=== PATIENT | female | born 1960 ===

== ENCOUNTER 2017-02-03 12:12 | Emergency (ER) | payer MEDICAID ==
[2017-02-03 12:33] VITALS: BP 113/73; PULSE 77; RESP 16; TEMP 98.7; O2SAT 98
[2017-02-03] MEDS ORDERED: Albuterol-Ipratrop 3 mg / 0.5 (3 ml) UD INH STA (12:49)
[2017-02-03] MEDS ORDERED: Albuterol-Ipratrop 3 mg / 0.5 (3 ml) UD ONE (13:03)
--- NOTE | 2017-02-03 13:04 | ED PDOC ---
HPI: CCC, URI, Sore Throat Time Seen by Provider: 02/03/17 12:45 Chief Complaint (Nursing): Fever Chief Complaint (Provider): Chest pain History Per: Patient History/Exam Limitations: no limitations Onset/Duration Of Symptoms: Days Current Symptoms Are (Timing): Still Present Location Of Pain: Throat, Diffuse Myalgias Sick Contacts (Context): None Associated Symptoms: Cough Ear Symptoms: Bilateral: None Severity: Mild Additional Complaint(s): Patient is a 56 year old female who presents to ED for multiple complaints. Concerned mostly of throat pain and possible need for antibiotis. Notes 1 week of neck and left arm pain worse with movement. States she also developed a chest tightness that is only cleared by coughing. Now with sore throat and ear pain for 2 days. Denies vomiting, palpations, SOB or rash. Past Medical History Reviewed: Historical Data, Nursing Documentation, Vital Signs Vital Signs: Last Vital Signs Temp 98.7 F 02/03/17 12:30 Pulse 77 02/03/17 12:30 Resp 16 02/03/17 12:30 BP 113/73 02/03/17 12:30 Pulse Ox 98 02/03/17 13:35 - Medical History PMH: Migraine - Surgical History Surgical History: No Surg Hx - Family History Family History: States: No Known Family Hx - Living Arrangements Living Arrangements: With Family - Home Medications Home Medications: Ambulatory Orders Medication Instructions Recorded Albuterol HFA [Ventolin HFA 90 2 puff IH [id number] PRN #1 inhaler 02/03/17 mcg/actuation (8 g)] Cetirizine HCl [Zyrtec] 10 mg PO DAILY #15 capsule 02/03/17 Fluticasone Propionate [Flonase] 2 spr IN DAILY #1 bottle 02/03/17 Ibuprofen [Motrin] 600 mg PO Q8 PRN #21 tab 02/03/17 - Allergies Allergies/Adverse Reactions: Allergies Allergy/AdvReac Type Severity Reaction Status Date / Time No Known Allergies Allergy Verified 02/03/17 12:30 Review of Systems ROS Statement: Except As Marked, All Systems Reviewed And Found Negative Constitutional: Negative for: Fever ENT: Positive for: Ear Pain, Throat Pain Cardiovascular: Positive for: Chest Pain. Negative for: Palpitations, Light Headedness Respiratory: Positive for: Cough Gastrointestinal: Negative for: Nausea, Vomiting, Abdominal Pain Skin: Negative for: Rash Neurological: Negative for: Weakness, Numbness Physical Exam - Reviewed Nursing Documentation Reviewed: Yes Vital Signs Reviewed: Yes - Physical Exam Appears: Positive for: Non-toxic, No Acute Distress Skin: Positive for: Normal Color, Warm. Negative for: Rash Eye Exam: Positive for: Normal appearance ENT: Positive for: TM Is/Are (clear bilaterally ), Other (Questionable pharyngeal petichae ). Negative for: Pharyngeal Erythema, Tonsillar Exudate Neck: Positive for: Normal (Left lateral neck tenderness ), Painless ROM Cardiovascular/Chest: Positive for: Regular Rate, Rhythm. Negative for: Chest Non Tender (Reproducible chest wall tenderness ), Murmur Respiratory: Positive for: Normal Breath Sounds. Negative for: Respiratory Distress Back: Positive for: Normal Inspection Extremity: Positive for: Normal ROM. Negative for: Pedal Edema Neurologic/Psych: Positive for: Alert, Oriented - ECG O2 Sat by Pulse Oximetry: 98 (RA) Pulse Ox Interpretation: Normal Medical Decision Making Medical Decision Making: Time: 1245 Initial Impression: R/O strep vs viral illness Initial Plan: -- EKG -- Duoneb x1 -- Rapid strep Scribe Attestation: Documented by Zonia Padilla, acting as a scribe for Jennifer Sandoval PA-C. Provider Scribe Attestation: All medical record entries made by the Scribe were at my direction and personally dictated by me. I have reviewed the chart and agree that the record accurately reflects my personal performance of the history, physical exam, medical decision making, and the department course for this patient. I have also personally directed, reviewed, and agree with the discharge instructions and disposition. Disposition - Clinical Impression Clinical Impression: Seasonal allergies - Patient ED Disposition Is Patient to be Admitted: No - Disposition Referrals: [facility] [Outside] Disposition: Routine/Home Disposition Time: 13:34 Condition: FAIR Prescriptions: Albuterol HFA [Ventolin HFA 90 mcg/actuation (8 g)] 2 puff IH [id number] PRN #1 inhaler PRN Reason: Cough Fluticasone Propionate [Flonase] 2 spr IN DAILY #1 bottle Ibuprofen [Motrin] 600 mg PO Q8 PRN #21 tab PRN Reason: Pain, Moderate (4-7) Cetirizine HCl [Zyrtec] 10 mg PO DAILY #15 capsule Instructions: Reactive Airways Disease (ED), Allergic Rhinitis (ED) Forms: [facility] ED School/Work Excuse Print Language: MOZAMBICAN
--- NOTE | 2017-02-03 20:06 | CARD ---
APPROVED REPORT EKG Measurement Heart [id number] <Conclusion> Normal sinus rhythm Normal ECG
== END 2017-02-03 14:12 | disposition home or self-care (01) ==
LOC: H.ER 12:12
DX: J30.2 Other seasonal allergic rhinitis (principal); R07.89 Other chest pain; R07.0 Pain in throat

== ENCOUNTER 2018-02-04 08:38 | Emergency (ER) | payer MEDICAID ==
[2018-02-04 08:40] VITALS: BMI 23.1
[2018-02-04] MEDS ORDERED: Sodium Chloride 0.9% 1,000 ML IV STA (09:10)
[2018-02-04] MEDS ORDERED: Dexamethasone 8 MG in Dextrose 5% In Water 50 ML IV ONE (09:11)
[2018-02-04 09:42] LABS: BASO % 0.5 % (0.0-2.0); EOS # 0.2 K/uL (0.0-0.7); EOS % 2.2 % (0.0-4.0); HEMOGLOBIN 12.8 g/dL (12.0-16.0); LYMPH # 1.5 K/uL (1.0-4.3); LYMPH % 16.1 % (20.0-40.0); MEAN CELL VOLUME 83.3 fl (81.0-99.0); MEAN CORPUSCULAR HEMOGLOBIN 27.3 pg (27.0-31.0); MEAN CORPUSCULAR HGB CONC 32.7 g/dL (33.0-37.0); MEAN PLATELET VOLUME 8.4 fl (7.2-11.7); MONO # 0.5 K/uL (0.0-0.8); MONO % 5.1 % (0.0-10.0); NEUT # 6.9 K/uL (1.8-7.0); NEUT % 76.1 % (50.0-75.0); RBC 4.71 Mil/uL (3.80-5.20); RED CELL DISTRIBUTION WIDTH 14.2 % (11.5-14.5); WHITE BLOOD COUNT 9.1 K/uL (4.8-10.8)
[2018-02-04] MEDS ORDERED: Dexamethasone 4 mg/1 ml IVP ONE (09:45)
--- NOTE | 2018-02-04 09:50 | ED PDOC ---
HPI: General Adult Time Seen by Provider: 02/04/18 08:48 Chief Complaint (Nursing): ENT Problem Chief Complaint (Provider): ENT Problem History Per: Patient History/Exam Limitations: no limitations Onset/Duration Of Symptoms: Days (x last evening) Current Symptoms Are (Timing): Still Present Additional Complaint(s): Ms. Mayra vidal a 57 year old female who presents to the ED complaining of left-sided throat pain and inability to swallow since last evening. Describes pain as sharp and radiates to left ear. Denies fever, headache or sick contacts. PMD: Marilee Argueta Past Medical History Reviewed: Historical Data, Nursing Documentation, Vital Signs Vital Signs: Last Vital Signs Temp 98 F 02/04/18 08:40 Pulse 78 02/04/18 08:40 Resp 17 02/04/18 08:40 BP 102/66 02/04/18 08:40 Pulse Ox 100 02/04/18 13:18 - Medical History PMH: No Chronic Diseases - Surgical History Surgical History: No Surg Hx - Family History Family History: States: Unknown Family Hx - Social History Current smoker - smoking cessation education provided: No - Home Medications Home Medications: Ambulatory Orders Medication Instructions Recorded Albuterol HFA [Ventolin HFA 90 2 puff IH [id number] PRN #1 inhaler 02/03/17 mcg/actuation (8 g)] Cetirizine HCl [Zyrtec] 10 mg PO DAILY #15 capsule 02/03/17 Fluticasone Propionate [Flonase] 2 spr IN DAILY #1 bottle 02/03/17 Ibuprofen [Motrin] 600 mg PO Q8 PRN #21 tab 02/03/17 Amoxicillin/Clavulanate [Augmentin 1 tab PO BID #14 tab 02/04/18 875 MG-125 MG] Naproxen [Naprosyn] 500 mg PO BID PRN #14 tablet 02/04/18 - Allergies Allergies/Adverse Reactions: Allergies Allergy/AdvReac Type Severity Reaction Status Date / Time No Known Allergies Allergy Verified 02/03/17 12:30 Review of Systems ROS Statement: Except As Marked, All Systems Reviewed And Found Negative Constitutional: Negative for: Fever ENT: Positive for: Throat Pain (left-sided), Other (Inability to swallow) Neurological: Negative for: Headache Physical Exam - Reviewed Nursing Documentation Reviewed: Yes Vital Signs Reviewed: Yes - Physical Exam Appears: Positive for: Non-toxic Head Exam: Positive for: ATRAUMATIC, NORMAL INSPECTION, NORMOCEPHALIC Skin: Positive for: Normal Color, Warm, Dry Eye Exam: Positive for: Normal appearance, EOMI, PERRL ENT: Positive for: Pharynx Is (Asymmetry. Left peritonsillar area is edemous, inflamed and erythematous with exudates at tonsil. ), TM Is/Are (unremarkable), Tonsillar Exudate, Other (Uvula is midline) Neck: Negative for: Normal ((+): Left anterior neck Lymphadenopathy) Cardiovascular/Chest: Positive for: Regular Rate, Rhythm Respiratory: Positive for: Normal Breath Sounds (Lungs clear), Respiratory Distress Gastrointestinal/Abdominal: Positive for: Normal Exam Extremity: Positive for: Normal ROM. Negative for: Deformity Neurologic/Psych: Positive for: Alert, Oriented (x 3) - Laboratory Results Result Diagrams: 02/04/18 09:30 02/04/18 09:30 - ECG O2 Sat by Pulse Oximetry: 100 (RA) Pulse Ox Interpretation: Normal Medical Decision Making Medical Decision Making: Work up for Biphasia, peritonsillar abscess Time: 09:10 Plan: - CT Neck Soft Tissue with Contrast - BMP - CBC - Decadron Inj - Morphne 2 mg IV ONCE - Sodium Chloride 0.9% 1,000 ml IV 1,000 ms/hr Time: 11:19 CT Neck Soft Tissue with Contrast FINDINGS: NASOPHARYNX: Unremarkable. SUPRAHYOID NECK: Unremarkable oropharynx. Parapharyngeal spaces are clear. There is asymmetric enlargement of the left palatine tonsil extending into the uvula. The lingual and adenoidal tonsils are unremarkable. There is no evidence of tonsillar/ peritonsillar abscess. Findings may reflect acute bacterial tonsillitis. Please correlate with direct visual inspection. Intrinsic muscles of the tongue are symmetric and normal in appearance. INFRAHYOID NECK: Unremarkable larynx, hypopharynx, and supraglottic space. Vocal cords intact. MASS: None. GLANDS: Parotid and submandibular glands unremarkable. Normal size thyroid gland, without nodule. LYMPH NODES: Shotty subcentimeter level 1 and 2 cervical nodes. No significant cervical lymphadenopathy. 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 No acute fracture. VASCULAR STRUCTURES: Unremarkable. OTHER FINDINGS: None. IMPRESSION: Left palatine tonsillar enlargement extending to the left side of the uvula without evidence of abscess. Possible bacterial tonsillitis. Correlate with direct visual inspection. Lingual and adenoidal tonsils are unremarkable. No significant cervical lymphadenopathy. No additional abnormality. Pt tolerating fluids in ED, vitals stable Received dose Zosyn, followup ENT Rx augmentin and naprosyn Scribe Attestation: Documented by John Garcia, acting as a scribe for Rajat Jean-Baptiste III, DO Provider Scribe Attestation: All medical record entries made by the Scribe were at my direction and personally dictated by me. I have reviewed the chart and agree that the record accurately reflects my personal performance of the history, physical exam, medical decision making, and the department course for this patient. I have also personally directed, reviewed, and agree with the discharge instructions and disposition. Disposition - Clinical Impression Clinical Impression: Tonsillitis - Patient ED Disposition Is Patient to be Admitted: No Counseled Patient/Family Regarding: Studies Performed, Diagnosis, Need For Followup, Rx Given - Disposition Referrals: Almas Barrow MD [Staff Provider] - Disposition: Routine/Home Disposition Time: 12:45 Condition: STABLE Additional Instructions: Return to ER for any new or change in symptoms. See ENT doctor for any worsening pain. Drink plenty of fluids. Use soft diet. Take antibiotic as directed. --------- Volver a er para cualquier nuevo o cambio en los sntomas. Consulte al mdico ENT para cualquier dolor que empeore. Myra muchos lquidos. Use dieta blanda. Notus antibiticos anna se indica. Prescriptions: Amoxicillin/Clavulanate [Augmentin 875 MG-125 MG] 1 tab PO BID #14 tab Naproxen [Naprosyn] 500 mg PO BID PRN #14 tablet PRN Reason: Pain, Moderate (4-7) Instructions: Sore Throat in Adults Forms: [facility] (Faroese) Print Language: TURKISH
[2018-02-04] MEDS ORDERED: Dexamethasone 4 mg/1 ml ONE (09:55)
[2018-02-04 09:57] LABS: BLOOD UREA NITROGEN 14 mg/dl (7-17); GFR AFRICAN-AMERICAN > 60; GFR NON-AFRICAN AMERICAN > 60
[2018-02-04] MEDS ORDERED: Iohexol 300 100 ML IJ ONE (10:26)
--- NOTE | 2018-02-04 11:20 | CT ---
PROCEDURE: CT NECK WITH CONTRAST HISTORY: left throat pain/swelling COMPARISON: None TECHNIQUE: CT of the neck with intravenous contrast. Coronal and sagittal reformats generated. Intravenous contrast dose: 95 cc Omnipaque 300 Radiation dose: DLP 335.39 mGy-cm This CT exam was performed using one or more of the following dose reduction techniques: Automated exposure control, adjustment of the mA and/or kV according to patient size, and/or use of iterative reconstruction technique. FINDINGS: NASOPHARYNX: Unremarkable. SUPRAHYOID NECK: Unremarkable oropharynx. Parapharyngeal spaces are clear. There is asymmetric enlargement of the left palatine tonsil extending into the uvula. The lingual and adenoidal tonsils are unremarkable. There is no evidence of tonsillar/peritonsillar abscess. Findings may reflect acute bacterial tonsillitis. Please correlate with direct visual inspection. Intrinsic muscles of the tongue are symmetric and normal in appearance. INFRAHYOID NECK: Unremarkable larynx, hypopharynx, and supraglottic space. Vocal cords intact. MASS: None. GLANDS: Parotid and submandibular glands unremarkable. Normal size thyroid gland, without nodule. LYMPH NODES: Shotty subcentimeter level 1 and 2 cervical nodes. No significant cervical lymphadenopathy. 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 No acute fracture. VASCULAR STRUCTURES: Unremarkable. OTHER FINDINGS: None. IMPRESSION: Left palatine tonsillar enlargement extending to the left side of the uvula without evidence of abscess. Possible bacterial tonsillitis. Correlate with direct visual inspection. Lingual and adenoidal tonsils are unremarkable. No significant cervical lymphadenopathy. No additional abnormality.
[2018-02-04] MEDS ORDERED: Piperacillin/Tazobact 4.5 GM in Sodium Chloride 0.9% 100 ML IVPB STA (11:30)
[2018-02-04 13:31] VITALS: BP 122/68; PULSE 66; RESP 16; TEMP 97.8; O2SAT 98
== END 2018-02-04 13:30 | disposition home or self-care (01) ==
LOC: H.ER 08:38
DX: J35.1 Hypertrophy of tonsils (principal)
CPT/HCPCS: 70491; 80048; 85025; 96361; 96365; 96375; 99283; J1100; J2270; J2543; J7040; Q9967

== ENCOUNTER 2018-04-10 10:46 | Emergency (ER) | payer MEDICAID ==
[2018-04-10 10:46] VITALS: BMI 23.1
[2018-04-10] MEDS ORDERED: Sodium Chloride 0.9% 1,000 ML IV STA (11:27)
--- NOTE | 2018-04-10 12:01 | CT ---
PROCEDURE: CT HEAD WITHOUT CONTRAST. HISTORY: L sided headache COMPARISON: CT head dated 11/10/2015. TECHNIQUE: Axial computed tomography images were obtained through the head/brain without intravenous contrast. Radiation dose: Total exam DLP = 788.1 mGy-cm. This CT exam was performed using one or more of the following dose reduction techniques: Automated exposure control, adjustment of the mA and/or kV according to patient size, and/or use of iterative reconstruction technique. FINDINGS: HEMORRHAGE: No intracranial hemorrhage. BRAIN: No mass effect or edema. No atrophy or chronic microvascular ischemic changes. VENTRICLES: Unremarkable. No hydrocephalus. CALVARIUM: Unremarkable. PARANASAL SINUSES: Left ethmoid air cell opacification and trace maxillary/sphenoid sinus mucosal thickening. MASTOID AIR CELLS: Unremarkable as visualized. No inflammatory changes. OTHER FINDINGS: Questionable fusiform dilatation of the right internal carotid artery trifurcation. IMPRESSION: No acute intracranial pathology. Left paranasal sinus disease. Questionable fusiform aneurysmal dilatation of the right internal carotid artery trifurcation. CTA can be obtained for further evaluation as clinically warranted.
[2018-04-10 12:14] LABS: BASO % 0.4 % (0.0-2.0); EOS # 0.2 K/uL (0.0-0.7); EOS % 3.3 % (0.0-4.0); HEMOGLOBIN 13.7 g/dL (12.0-16.0); LYMPH # 1.3 K/uL (1.0-4.3); LYMPH % 18.7 % (20.0-40.0); MEAN CELL VOLUME 84.7 fl (81.0-99.0); MEAN CORPUSCULAR HEMOGLOBIN 27.6 pg (27.0-31.0); MEAN CORPUSCULAR HGB CONC 32.6 g/dL (33.0-37.0); MEAN PLATELET VOLUME 8.2 fl (7.2-11.7); MONO # 0.6 K/uL (0.0-0.8); NEUT # 4.8 K/uL (1.8-7.0); NEUT % 69.6 % (50.0-75.0); NRBC % 0.1 % (0.0-0.0); RBC 4.96 Mil/uL (3.80-5.20); RED CELL DISTRIBUTION WIDTH 14.6 % (11.5-14.5); WHITE BLOOD COUNT 6.9 K/uL (4.8-10.8)
--- NOTE | 2018-04-10 12:15 | ED PDOC ---
HPI: General Adult Time Seen by Provider: 04/10/18 11:10 Chief Complaint (Nursing): Headache History Per: Patient, [employer] ([place] #[id number]) Additional Complaint(s): Pt. states for the past 3 days she's had L sided facial pain, headahce, L earache, nasal congestion and sore throat. Also reports having a fever. Has been taking Tylenol (last dose at 2300 yesterday). Of note, pt. states facial pain is worse when bending neck forward. Denies cough, SOB, chest pain, head injury, trauma, rash, abdominal pain, light sensitivity, neck pain/stiffness. Past Medical History Reviewed: Historical Data, Nursing Documentation, Vital Signs Vital Signs: Last Vital Signs Temp 97.8 F 04/10/18 12:56 Pulse 91 H 04/10/18 10:50 Resp 20 04/10/18 10:50 BP 116/61 04/10/18 10:50 Pulse Ox 99 04/10/18 12:17 - Medical History PMH: Migraine - Family History Family History: States: No Known Family Hx - Home Medications Home Medications: Ambulatory Orders Medication Instructions Recorded Albuterol HFA [Ventolin HFA 90 2 puff IH [id number] PRN #1 inhaler 02/03/17 mcg/actuation (8 g)] Cetirizine HCl [Zyrtec] 10 mg PO DAILY #15 capsule 02/03/17 Fluticasone Propionate [Flonase] 2 spr IN DAILY #1 bottle 02/03/17 Ibuprofen [Motrin] 600 mg PO Q8 PRN #21 tab 02/03/17 Amoxicillin/Clavulanate [Augmentin 1 tab PO BID #14 tab 02/04/18 875 MG-125 MG] Naproxen [Naprosyn] 500 mg PO BID PRN #14 tablet 02/04/18 Amoxicillin/Clavulanate [Augmentin 1 tab PO BID #20 tab 04/10/18 500 MG-125 MG] Fluticasone Propionate [Flonase] 2 spr NS DAILY PRN #1 bottle 04/10/18 Pseudoephedrine HCl [Sudafed] 1 - 2 tab PO Q8 PRN #15 tablet 04/10/18 - Allergies Allergies/Adverse Reactions: Allergies Allergy/AdvReac Type Severity Reaction Status Date / Time No Known Allergies Allergy Verified 04/10/18 11:02 Review of Systems ROS Statement: Except As Marked, All Systems Reviewed And Found Negative Constitutional: Positive for: Fever ENT: Positive for: Ear Pain, Nose Congestion, Throat Pain Neurological: Positive for: Headache Physical Exam - Physical Exam Appears: Positive for: Well, Non-toxic, No Acute Distress Head Exam: Positive for: ATRAUMATIC, NORMAL INSPECTION, NORMOCEPHALIC Skin: Positive for: Normal Color, Warm. Negative for: Rash Eye Exam: Positive for: Normal appearance, EOMI, PERRL. Negative for: Conjunctival injection (b/l) ENT: Positive for: TM Is/Are (non-erythematous, non-bulging b/l), Sinus Pain/ Drainage (L sided malar tenderness), Nasal Congestion, Pharyngeal Erythema. Negative for: Tonsillar Exudate, Tonsillar Swelling Neck: Positive for: Normal, Painless ROM Cardiovascular/Chest: Positive for: Regular Rate, Rhythm Respiratory: Positive for: CNT, Normal Breath Sounds Neurologic/Psych: Positive for: Alert, Oriented. Negative for: Aphasia, Facial Droop - Laboratory Results Result Diagrams: 04/10/18 12:04 04/10/18 12:04 - ECG O2 Sat by Pulse Oximetry: 99 - Progress ED Course And Treament: Labs, CT head w/o contrast, blood culture x 2, VBG, toradol 15mg IV, tylenol 975mg PO, IV NS bolus x 1 ordered. 1330 [place] [id number] On re-evaluation, pt. informed of results and need for f/u regarding possible aneurysm. States she will f/u with her PMD, Dr. Argueta on Thursday. States headache has improved. Denies R sided headache. Pt. given CT report. Advised to return to ED immediately if symptoms worsen. Disposition - Clinical Impression Clinical Impression: Acute sinusitis - Patient ED Disposition Is Patient to be Admitted: No - Disposition Referrals: [facility] [Outside] Marilee Argueta MD [Family Provider] - Disposition: Routine/Home Disposition Time: 13:32 Condition: IMPROVED Additional Instructions: Follow up with your primary care doctor on Thursday without fail. Return to ED immediately if symptoms worsen. Prescriptions: Amoxicillin/Clavulanate [Augmentin 500 MG-125 MG] 1 tab PO BID #20 tab Fluticasone Propionate [Flonase] 2 spr NS DAILY PRN #1 bottle PRN Reason: Allergy Symptoms Pseudoephedrine HCl [Sudafed] 1 - 2 tab PO Q8 PRN #15 tablet PRN Reason: congestion Instructions: Sinusitis, Adult (DC) Forms: [employer] ([place]ien) Print Language: [place]IZ[place]
[2018-04-10 12:20] LABS: VENOUS BLOOD GAS PCO2 46 mmHg (40-60); VENOUS BLOOD GAS PO2 52 mm/Hg (30-55)
[2018-04-10 12:24] LABS: ALB/GLOB RATIO 1.1 (1.0-2.1); ALT/SGPT 20 U/L (9-52); AST/SGOT 28 U/L (14-36); BLOOD UREA NITROGEN 11 mg/dl (7-17); CALCIUM 9.3 mg/dL (8.4-10.2); GFR AFRICAN-AMERICAN > 60; GFR NON-AFRICAN AMERICAN > 60
[2018-04-10 13:03] VITALS: TEMP 97.8
[2018-04-10 13:53] VITALS: BP 110/59; PULSE 61; RESP 18; O2SAT 97
== END 2018-04-10 14:00 | disposition home or self-care (01) ==
LOC: H.ER 10:46
DX: J01.90 Acute sinusitis, unspecified (principal)
CPT/HCPCS: 70450; 80053; 82803; 85025; 87040; 87070; 87430; 87804; 96374; 99285; J1885; J7030